=== PATIENT | female | born 1955 | race Two or more races ===

== ENCOUNTER 2018-07-05 23:40 | Emergency (ER) | payer MEDICAID ==
[~2018-07-05] VITALS: Ht 154.9 cm; Wt 65.8 kg
[~2018-07-05 23:40] MED LIST: ATEN100T; CEPH500C; CLIN300C2; CLON0.2T; FURO20TA3; GLIP-116; INSLANTI; LISI40TA; METF-372; SIMV10TA84
[2018-07-05] MEDS ORDERED: CALCIUM CHLOR(10%) 100MG/ML 10ML SYRINGE IV ONE (23:44)
[2018-07-05] MEDS ORDERED: SODIUM BICARBONATE 8.4% INJ 50ML SYRINGE IV ONE (23:44)
[2018-07-05] MEDS ORDERED: EPINEPHrine HCL 1 MG/10 ML SYRG IV ONE (23:44)
[2018-07-05] MEDS ORDERED: DOPamine 1600mCg/ml 400MG/250ml NSorD5 KIT/BAG IV ONE (23:44)
== END 2018-07-06 00:39 | disposition expired ==
LOC: EDBD 23:40 → ER 23:43
DX: I46.9 Cardiac arrest, cause unspecified (principal); D64.9 Anemia, unspecified; I11.0 Hypertensive heart disease with heart failure; I50.9 Heart failure, unspecified; J44.9 Chronic obstructive pulmonary disease, unspecified; E11.9 Type 2 diabetes mellitus without complications; E78.5 Hyperlipidemia, unspecified; I25.2 Old myocardial infarction; Z86.39 Personal history of other endocrine, nutritional and metabolic disease; Z98.51 Tubal ligation status
CPT/HCPCS: 82962; 92950; 99291; J0171; J1265; 80053; 83735; 84484